=== PATIENT | female | born 2000 | race Two or more races ===

== ENCOUNTER 2021-04-04 16:56 | Emergency (ER) | payer OTHER ==
[~2021-04-04] VITALS: Ht 157.5 cm; Wt 110.0 kg
[2021-04-04 17:44] VITALS: BP 112/49
[2021-04-04] MEDS ORDERED: ketorolac trometh. 30mg/ml inj. IV ONE (19:30)
== END 2021-04-04 19:46 | disposition home or self-care (01) ==
LOC: ER 17:08
DX: S29.012A Strain of muscle and tendon of back wall of thorax, initial encounter (principal); M25.512 Pain in left shoulder; M54.31 Sciatica, right side; X50.0XXA Overexertion from strenuous movement or load, initial encounter; Y93.89 Activity, other specified; Y92.89 Other specified places as the place of occurrence of the external cause; Y99.8 Other external cause status
CPT/HCPCS: 96374; 99283; J1885